=== PATIENT | female | born 1945 | race Caucasian/White ===

== ENCOUNTER → 2019-11-08 | Outpatient (CLI) | payer MEDICARE ==
[2019-11-08 10:41] LABS: CALCIUM 9.8 MG/DL (8.5-10.1); CREATININE SERUM 1.01 MG/DL (0.60-1.30); POTASSIUM 3.9 MMOL/L (3.6-5.0)
== END ==
LOC: LAB FS 09:37
PROVIDERS: ATTEND Family Medicine
DX: I10 Essential (primary) hypertension (principal)
CPT/HCPCS: 36415; 80048

== ENCOUNTER → 2020-07-03 | Outpatient (CLI) | payer MEDICARE, OTHER ==
[2020-07-03 11:49] LABS: ALANINE AMINOTRANSFERASE 9 U/L (0-55); ALBUMIN 4.2 GM/DL (3.2-4.5); ALKALINE PHOSPHATASE 70 U/L (40-136); BILIRUBIN,TOTAL 0.4 MG/DL (0.1-1.0); BUN/CREATININE RATIO 9; CALCIUM 9.4 MG/DL (8.5-10.1); CARBON DIOXIDE 28 MMOL/L (21-32); CHLORIDE 109 MMOL/L (98-107); CREATININE SERUM 0.87 MG/DL (0.60-1.30); GFR ESTIMATED > 60; GLUCOSE 98 MG/DL (70-105); POTASSIUM 4.1 MMOL/L (3.6-5.0); SODIUM 146 MMOL/L (135-145); TOTAL PROTEIN 6.5 GM/DL (6.4-8.2)
[2020-07-03 14:50] LABS: CHOLESTEROL 213 MG/DL (< 200); HDL CHOLESTEROL 52 MG/DL (40-60); TRIGLYCERIDES 83 MG/DL (<150); VLDL CHOLESTEROL 17 MG/DL (5-40)
== END ==
LOC: LAB FS 10:17
PROVIDERS: ATTEND Family Medicine
DX: I10 Essential (primary) hypertension (principal); E03.9 Hypothyroidism, unspecified
CPT/HCPCS: 36415; 80053; 80061; 84443

== ENCOUNTER 2020-09-01 17:24 | Emergency (ER) | payer MEDICARE ==
[~2020-09-01] VITALS: Ht 170 cm; Wt 64.0 kg
--- NOTE | 2020-09-01 17:38 | ED Back Pain ---
General Chief Complaint: Back Problems Stated Complaint: LOW BACK PAIN History of Present Illness Date Seen by Provider: Sep 01, 2020 Time Seen by Provider: 17:34 Initial Comments 75-year-old female presents with lower lumbar back pain. Patient reports that she fell 5 days ago. That the pain has not gotten any better. She denies any numbness or tingling in her legs, no issues with her bowel or bladder. She presents because she would like an x-ray since it is still hurting. She also reports that she had a small contusion on the back of her head. She has no neurologic symptoms. She reports she fell on her feet went out from underneath her and she just fell straight back and landed on her back Allergies and Home Medications Allergies Coded Allergies: diphenhydramine (Verified Allergy, Intermediate, Itching, 09/01/20) calcium (Verified Allergy, Mild, Nausea, 09/01/20) levofloxacin (Verified Allergy, Mild, Itching, 09/01/20) brompheniramine (Verified Allergy, Unknown, 09/01/20) phenylpropanolamine (Verified Allergy, Unknown, 09/01/20) secobarbital (Verified Allergy, Unknown, 09/01/20) Patient Home Medication List Home Medication List Reviewed: Yes Review of Systems Constitutional: No chills, No fever EENTM: see HPI Respiratory: No cough, No short of breath Cardiovascular: No chest pain, No palpitations Gastrointestinal: no symptoms reported Musculoskeletal: back pain Skin: see HPI Psychiatric/Neurological: No Symptoms Reported Past Sxaqbay-Hwqprx-Wofiwm Hx Past Med/Social Hx: Reviewed Nursing Past Med/Soc Hx Physical Exam Vital Signs Vital Signs - First Documented 09/01/20 17:50 Temp 36.4 Pulse 69 Resp 18 B/P (MAP) 113/73 (86) Pulse Ox 98 O2 Delivery Room Air Capillary Refill : Height, Weight, BMI Height: '" Weight: lbs. oz. 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 Patient with likely contusion of her lower back. Recommend she use warm moist heat, Tylenol, ibuprofen and topical lidocaine. She should follow-up with her primary care provider at the end of next week if symptoms or not improving. Diagnostic Imaging Diagonstic Imaging: Xray Plain Films/CT/US/NM/MRI: other Comments [facility], [place] NAME: CLAUDIA TUCKER MED REC#: [id number] PT STATUS: REG ER : 1945 PHYSICIAN: GERALDO ROBLES DO ADMIT DATE: 09/01/20/ER FS Draft Date of Exam:09/01/20 LUMBAR SPINE 2 OR 3 VIEW HISTORY: Fall five days ago with low back pain. TECHNIQUE: 3 views of the lumbar spine. COMPARISON: None. FINDINGS: There is diffuse osteopenia which results in suboptimal evaluation. There are mild multilevel degenerative changes in the lumbar spine. There is trace anterolisthesis at L4-L5. There is extensive calcific atherosclerosis noted. Vertebral body heights are preserved. No acute fracture is seen. IMPRESSION: Osteopenia and degenerative changes with no acute fracture seen in the lumbar spine. Dictated on workstation # [id number] Dict: 09/01/201905 Trans: 09/01/201911 [facility] [id number] Interpreted by: DANNY JOAQUIN MD Electronically signed by: Reviewed: Reviewed by Me, Reviewed/Discussed Departure Impression Primary Impression: Contusion of lower back Qualified Codes: S30.0XXA - Contusion of lower back and pelvis, initial encounter Disposition: HOME, SELF-CARE Condition: Stable Departure-Patient Inst. Referrals: SHAMAR ROTHMAN MD (PCP/Family) Primary Care Physician Patient Instructions: Contusion (DC) Add. Discharge Instructions: Warm moist heat to affected area Tylenol or ibuprofen as needed for pain 4% topical lidocaine with menthol and gel, patch or cream. Use as directed on package All discharge instructions reviewed with patient and/or family. Voiced understanding. GERALDO ROBLES DO Sep 01, 2020 17:38
--- NOTE | 2020-09-01 19:13 | Diagnostic Imaging Report ---
HISTORY: Fall five days ago with low back pain. TECHNIQUE: 3 views of the lumbar spine. COMPARISON: None. FINDINGS: There is diffuse osteopenia which results in suboptimal evaluation. There are mild multilevel degenerative changes in the lumbar spine. There is trace anterolisthesis at L4-L5. There is extensive calcific atherosclerosis noted. Vertebral body heights are preserved. No acute fracture is seen. IMPRESSION: Osteopenia and degenerative changes with no acute fracture seen in the lumbar spine. Dictated by: Dictated on workstation # [id number]
[2020-09-01 19:46] VITALS: BP 113/73
== END 2020-09-01 19:39 | disposition home or self-care (01) ==
LOC: EDUNIT# 17:24 → ER FS 17:26
DX: S30.0XXA Contusion of lower back and pelvis, initial encounter (principal); S00.01XA Abrasion of scalp, initial encounter; Z88.8 Allergy status to other drugs, medicaments and biological substances; Z88.1 Allergy status to other antibiotic agents; W19.XXXA Unspecified fall, initial encounter
CPT/HCPCS: 72100

== ENCOUNTER → 2021-03-14 | Outpatient (CLI) | payer MEDICARE | LOC: LABNPT 14:57 | PROVIDERS: ATTEND Family Medicine | DX: N39.0 Urinary tract infection, site not specified (principal) | CPT/HCPCS: 87088 ==

== ENCOUNTER 2021-06-19 08:51 | Emergency (ER) | payer MEDICARE, OTHER ==
[~2021-06-19] VITALS: Ht 171 cm; Wt 64.0 kg
--- OUTSIDE RECORDS SUMMARY | 2021-06-19 08:56 | XMS REPORT | Clinical Summary ---
Author Author [facility] Organization [facility] Address Unknown Phone Unavailable Care Team Providers Care Cash Accounting Clerk Name Role Phone Elisa Chan RN PCP Unavailable Allergies Comments Active Allergy Reactions Severity Noted Date Levofloxacin 04/18/2017 Medications End Date Status Medication Sig Dispensed Refills Start Date Active levothyroxine (SYNTHROID, Take 88 mcg 0 LEVOTHROID) 88 MCG tablet by mouth daily. Active Problems Not on file Social History Date Tobacco Use Types Packs/Day Years Used Never Smoker Smokeless Tobacco: Never Used Comments Alcohol Use Standard Drinks/Week No 0 (1 standard drink = 0.6 o z pure alcohol) Sex Assigned at Date Recorded Not on file Last Filed Vital Signs Reading Time Taken Comments Vital Sign 159/59 04/18/2017 4:46 PM CDT Blood Pressure 63 04/18/2017 4:46 PM CDT Pulse 36.9 C (98.5 F) 04/18/2017 3:34 PM CDT Temperature 16 04/18/2017 3:34 PM CDT Respiratory Rate 97% 04/18/2017 4:46 PM CDT Oxygen Saturation - - Inhaled Oxygen Concentration 66.4 kg (146 lb 4.8 oz) 04/18/2017 3:34 PM CDT Weight 170.2 cm (5' 7") 04/18/2017 3:34 PM CDT Height 22.91 04/18/2017 3:34 PM CDT Body Mass Index Plan of Treatment Health Maintenance Due Date Last Done Comments Medicare Annual Wellness 1945 Td/Tdap# 1945 COVID-19 Vaccine (1) 1955 Zoster Vaccine# (1 of 2) 1993 Advance Care Plan 2008 Conversation Needed # Depression Screening 2008 PHQ-9 # Osteoporosis Screening 2008 Pneumococcal Vaccine: 65+ 2008 Years (1 of 1 - PPSV23) Fall Risk Assessment # 04/18/2018 04/18/2017 Influenza Vaccine (#1) 2021 Results Not on filefrom Last 3 Months Insurance Type Payer Benefit Subscriber ID Effective Phone Address Plan / Dates Group Medicare MEDICARE MEDICARE [id number] 2008- [phone] WPS GHA PART A B Present ATTN CLAIMS DEPT [address] [place] [address] [place] [id number] [address] MEDICAID -Present [id number] [place] [address] 78 1 Goivani Ramonda L Personal/F Self [address] [place] (Home) [place] [id number] FeeGiovani paulada L Personal/F Self [address] [place] (Home) [place] [id number] Advance Directives For more information, please contact: [phone] Patient Development Mgr Explanation Type Date Recorded Advance Directives and Living Will 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
[2021-06-19] MEDS ORDERED: NS IV 1000 ML 1,000 ML IV STA (09:14)
[2021-06-19] MEDS ORDERED: ORPHENADRINE 60 MG/2 ML (NORFLEX) AMP (ED ONLY) IVP STA (09:14)
[2021-06-19] MEDS ORDERED: fentaNYL INJ 100 MCG/2 ML AMP IVP STA (09:14)
[2021-06-19] MEDS ORDERED: KETOROLAC 30 MG/ML VIAL IVP STA (09:14)
--- NOTE | 2021-06-19 09:30 | ED Trauma-Multisystem ---
General Chief Complaint: Back Problems Stated Complaint: WC BACK INJ Source of Information: Patient, Family (daughter) Exam Limitations: Other (limited responses due to pain, pt holding breath) History of Present Illness Date Seen by Provider: Jun 19, 2021 Time Seen by Provider: 09:00 Initial Comments 76-year-old female presenting with complaints of increased back and rib pain since having a work comp injury yesterday. 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 She was having pain to her right lower ribs that started overnight. She thinks that the movements had hit her ribs. She also has increased pain across her low back and her lower thoracic spine. She was seen yesterday in urgent care and states they did not do any x-rays or imaging they only gave her Toradol shot and "doped her up". She was to go back today and get xrays but was in so much pain they told her she would have to see Dr. Nielsen for work comp case. Due to her increased pain she felt that she could not wait to be seen by him. She came to the ED to be evaluated. She denies any pain or burning with urination. She has had no loss of bowel or bladder control. The daughter reports that she was called to her mom's house to help get her up off of the toilet because she could not get off herself due to the pain in her back. The daughter reports that the urine was really dark and smelled strong. Patient took 2 ibuprofen about an hour prior to arrival. She states that has not helped with her pain. She denies having any pain going into her legs or radiating into her arms. Occurred: Yesterday Severity: Severe Pain/Injury Location: Back, Chest (right lower ribs) Method of Injury: Other (reports a heavy set woman fell back on top of her) Modifying Factors: No Movement; Pain Medication (medicine from Urgent Care helped yesterday but wore off overnight) Loss of Consciousness: No Loss of Consciousness Associated Symptoms (Fall): No Abdominal Pain; Chest Pain (right lower anterior rib pain); No Confusion, No Dizziness, No Headache; Muscle Spasms; No Nausea/Vomiting, No Neck Pain, No Ringing in Ears, No Seizures; Shortness of Air (due to rib pain making it hard to breath); No Slurred Speech; Trouble Walking (due to pain in back and ribs); No Vision Changes Allergies and Home Medications Allergies Coded Allergies: diphenhydramine (Verified Allergy, Intermediate, Itching, 09/01/20) calcium (Verified Allergy, Mild, Nausea, 09/01/20) levofloxacin (Verified Allergy, Mild, Itching, 09/01/20) brompheniramine (Verified Allergy, Unknown, 09/01/20) phenylpropanolamine (Verified Allergy, Unknown, 09/01/20) secobarbital (Verified Allergy, Unknown, 09/01/20) Patient Home Medication List Home Medication List Reviewed: Yes Hydrocodone/Acetaminophen (Hydrocodone-Acetamin 5-325 mg) 1 Each Tablet, 1 TAB PO Q4H PRN for PAIN-SEVERE (8-10) Prescribed by: ANIRUDH LEDBETTER on 06/19/21 1152 Ibuprofen (Ibuprofen) 600 Mg Tablet, 600 MG PO Q6H PRN for PAIN-MILD Prescribed by: ANIRUDH LEDBETTER on 06/19/21 1151 Lidocaine (Lidocaine 5% Patch) 1 Each Adh..patch, 1 EACH TP Q12H PRN for Vertebral Fracture Prescribed by: ANIRUDH LEDBETTER on 06/19/21 1151 Methocarbamol (Methocarbamol) 500 Mg Tablet, 1,000 MG PO Q8H PRN for back pain/spasms Prescribed by: ANIRUDH LEDBETTER on 06/19/21 1151 Review of Systems Review of Systems Constitutional: No chills, No fever Eyes: No Symptoms Reported Ears: No Symptoms Reported Nose: No Symptoms Reported Mouth: No Symptoms Reported Throat: No Symptoms to Report Respiratory: see HPI Cardiovascular: See HPI Gastrointestinal: no symptoms reported Genitourinary: no symptoms reported Musculoskeletal: see HPI Skin: No change in color (no bruises noted to skin on ribs, chest or back) Psychiatric/Neurological: Anxiety; Denies Numbness, Denies Tingling, Denies Unable to Move Lower Ext, Denies Unable to Move Upper Ext Past [id number]-Asuimz Hx Seasonal Allergies Seasonal Allergies: No Past Medical History Surgeries: Yes Hysterectomy Respiratory: No Cardiac: Yes Hypertension Neurological: No Genitourinary: No Gastrointestinal: No Musculoskeletal: No Endocrine: No Hypothyroidsim HEENT: No Cancer: No Psychosocial: No Integumentary: No Blood Disorders: No Physical Exam Vital Signs Vital Signs - First Documented 06/19/21 09:03 Temp 36.2 Pulse 73 Resp 20 B/P (MAP) 179/64 (102) Pulse Ox 98 O2 Delivery Room Air Height, Weight, BMI Height: '" Weight: lbs. oz. kg; 22.00 BMI Method: General Appearance: Severe Distress Head: No Evidence of Injury Ears, Nose, Throat: Hearing Grossly Normal, No Evidence of ENT Injury Neck: Full Range of Motion, Normal Inspection, Non Tender, Supple Cardiovascular: Regular Rate, Rhythm, Normal Peripheral Pulses Respiratory: Lungs Clear, Normal Breath Sounds, Other (tender to palpation right lower anterior ribs without crepitus or step offs) Gastrointestinal: Normal Bowel Sounds, No Pulsatile Mass, Non Tender, Soft Rectal: Deferred Back: No CVA Tenderness, Muscle Spasm (paraspinal muscles lumbar and thoracic), Vertebral Tenderness (lower thoracic spine and lower lumbar spine without stepoffs, crepitus, bruising), Other (unable to perform straight leg raise due to pain) Extremity: Normal Capillary Refill, No Calf Tenderness, No Pedal Edema Neurologic/Psychiatric: Alert, Oriented x3, group chief operator II-XII Norm as Tested Skin: Normal Color, Warm/Dry Jana Coma Score Best Eye Response (Jana): (4) Open Spontaneously Best Verbal Response (Drummond): (5) Oriented Best Motor Response (Drummond): (6) Obeys Commands Drummond Total: 15 Progress/Results/Core Measures Results/Orders Lab Results Laboratory Tests Test 06/19/21 09:20 06/19/21 10:55 Range/Units White Blood Count 5.8 4.3-11.0 10^3/uL Red Blood Count 4.11 3.80-5.11 10^6/uL Hemoglobin 12.4 11.5-16.0 g/dL Hematocrit 37 35-52 % Mean Corpuscular Volume 91 80-99 fL Mean Corpuscular Hemoglobin 30 25-34 pg Mean Corpuscular Hemoglobin Concent 33 32-36 g/dL Red Cell Distribution Width 12.7 10.0-14.5 % Platelet Count 69 L 130-400 10^3/uL Mean Platelet Volume 10.9 9.0-12.2 fL Neutrophils (%) (Auto) 64 42-75 % Lymphocytes (%) (Auto) 24 12-44 % Monocytes (%) (Auto) 9 0-12 % Eosinophils (%) (Auto) 2 0-10 % Basophils (%) (Auto) 1 0-10 % Neutrophils # (Auto) 3.7 1.8-7.8 X 10^3 Lymphocytes # (Auto) 1.4 1.0-4.0 X 10^3 Monocytes # (Auto) 0.5 0.0-1.0 X 10^3 Eosinophils # (Auto) 0.1 0.0-0.3 10^3/uL Basophils # (Auto) 0.1 0.0-0.1 10^3/uL Percent Immature Platelet Fraction 5.8 0.0-7.6 % Sodium Level 140 135-145 MMOL/L Potassium Level 3.5 L 3.6-5.0 MMOL/L Chloride Level 105 98-107 MMOL/L Carbon Dioxide Level 23 21-32 MMOL/L Anion Gap 12 5-14 MMOL/L Blood Urea Nitrogen 11 7-18 MG/DL Creatinine 0.77 0.60-1.30 MG/DL Estimat Glomerular Filtration Rate 73 BUN/Creatinine Ratio 14 Glucose Level 129 H 70-105 MG/DL Calcium Level 9.1 8.5-10.1 MG/DL Corrected Calcium 9.3 8.5-10.1 MG/DL Total Bilirubin 0.5 0.1-1.0 MG/DL Aspartate Amino Transf (AST/SGOT) 13 5-34 U/L Alanine Aminotransferase (ALT/SGPT) 10 0-55 U/L Alkaline Phosphatase 89 40-136 U/L Total Protein 6.7 6.4-8.2 GM/DL Albumin 3.8 3.2-4.5 GM/DL Urine Color YELLOW Urine Clarity CLEAR Urine pH 7.0 5-9 Urine Specific [place] <=1.005 1.016-1.022 Urine Protein NEGATIVE NEGATIVE Urine Glucose (UA) NEGATIVE NEGATIVE Urine Ketones NEGATIVE NEGATIVE Urine Nitrite NEGATIVE NEGATIVE Urine Bilirubin NEGATIVE NEGATIVE Urine Urobilinogen 0.2 < = 1.0 MG/DL Urine Leukocyte Esterase TRACE H NEGATIVE Urine RBC (Auto) 1+ H NEGATIVE Urine RBC 2-5 H /HPF Urine WBC 2-5 /HPF Urine Squamous Epithelial Cells 0-2 /HPF Urine Crystals NONE /LPF Urine Bacteria NEGATIVE /HPF Urine Casts NONE /LPF Urine Mucus NEGATIVE /LPF Urine Culture Indicated NO My Orders Orders - ANIRUDH LEDBETTER MD Comprehensive Metabolic Panel (06/19/21 09:14) Ua Culture If Indicated (06/19/21 09:14) Ed Iv/Invasive Line Start (06/19/21 09:14) Cbc With Automated Diff (06/19/21 09:14) Ns Iv 1000 Ml (Sodium Chloride 0.9%) (06/19/21 09:14) Orphenadrine Inj (Ed Only) (Norflex Inje (06/19/21 09:14) Ketorolac Injection (Toradol Injection) (06/19/21 09:14) Fentanyl Inj (Sublimaze Injection) (06/19/21 09:14) Ct Chest/Abdomen/Pelvis W (06/19/21 09:45) Iohexol Injection (Omnipaque 350 Mg/Ml 1 (06/19/21 10:00) Received Contrast (Hold Metformin- Contr (06/19/21 10:00) Sodium Chloride Flush (Catheter Flush Sy (06/19/21 10:00) Ns (Ivpb) (Sodium Chloride 0.9% Ivpb Bag (06/19/21 10:00) Hydrocodone/Apap 5/325 Tablet (Lortab 5 (06/19/21 11:36) Medications Given in ED Current Medications Medications Dose Ordered Sig/Denzel Route Start Time Stop Time Status Last Admin Dose Admin Iohexol 100 ml ONCE ONCE IV 06/19/21 10:00 06/19/21 10:01 DC 06/19/21 10:22 100 ML Sodium Chloride 10 ml NEEDED PRN IV 06/19/21 10:00 06/19/21 12:53 DC 06/19/21 10:22 10 ML Sodium Chloride 100 ml ONCE ONCE IV 06/19/21 10:00 06/19/21 10:01 DC 06/19/21 10:22 100 ML Vital Signs/I&O 06/19/21 06/19/21 06/19/21 09:03 09:40 11:44 Temp 36.2 36.2 36.2 Pulse 73 75 Resp 20 20 B/P (MAP) 179/64 (102) 149/48 Pulse Ox 98 97 O2 Delivery Room Air Room Air Progress Progress Note #1: Progress Note Will patient having pain to the point that she is holding her breath and having trouble trying to respond to questions and interact for an exam, will give IV Toradol for pain, IV Norflex for muscle spasms, IV fentanyl for severe pain. Obtain a CT scan of the chest abdomen and pelvis with IV contrast to help evaluate for any evidence of internal bleeding or injuries since the pain is significantly worsened since yesterday. Also have reconstruction imaging of the thoracic and lumbar spine to evaluate for compression fractures. The CT scan of the chest would also look for rib fractures. Give IV fluids for hydration to help with report of strong smelling, dark urine this am. Obtain basic labs as well to evaluate for anemia to indicate internal bleeding, chemistry to evaluate electrolytes and renal and hepatic function. Differential diagnosis includes rib contusion, rib fracture, compression fracture of the spine, myofascial strain of the thoracic spine, myofascial strain of the lumbar spine Progress Note #2: Time: 10:31 Progress Note CBC and chemistry without acute significant abnormality. Awaiting results of imaging. Patient had urinated prior to coming to the ED and had not been able to obtain a urine specimen yet. IV fluids infusing to try and help with hydration as well as flushing out her kidneys after receiving contrast for the CT scan. Progress Note #3: Progress Note Urine did not show any definite signs of infection. She had no definite rib fracture seen on the CT scan. There was no internal bleeding seen on the CT scans. She had a superior endplate compression fracture of L3. There is no retropulsion. She is neurovascularly intact. When reviewing results with the patient and her daughter she reports that her pain is a 3 out of 10 when she is laying on her right side. Will administer a hydrocodone to help with her pain and have it last longer than the IV medications. Counseled about management of the back pain from her fracture with continued NSAIDs as well as possible lidocaine numbing patches. Using a muscle relaxer to help with pain and muscle spasms. Alternate ice and heat to her back. Make sure that she is getting up and moving around to help limit her muscles from tightening and getting more painful. Getting in with the clinic and see Dr. Nielsen for Work Comp to see about managing her back pain from superior endplate fracture of L3. Off work until at least Jun 26 or until cleared by Dr. Nielsen. Will need to see him to be cleared to return. May need physical therapy, pain management, spine consult for her back. 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 Counseled on return precautions of worsening pain uncontrolled by symptomatic care and medications. Loss of bowel or bladder control. Patient was able to ambulate out of the ED with the assistance of her daughter. She was still having some pain but was much more comfortable than when she arrived in the ED Diagnostic Imaging Diagonstic Imaging: CT Plain Films/CT/US/NM/MRI: chest, abdomen, pelvis Comments NAME: [facility] REC#: [id number] PT STATUS: REG ER : 1945 PHYSICIAN: ANIRUDH LEDBETTER MD ADMIT DATE: 06/19/21/ER FS Draft Date of Exam:06/19/21 CT CHEST/ABDOMEN/PELVIS W PROCEDURE: CT chest, abdomen, and pelvis with contrast. TECHNIQUE: Multiple contiguous axial images were obtained through the chest, abdomen, and pelvis after the administration of intravenous contrast. Auto Exposure Controls were utilized during the CT exam to meet ALARA standards for radiation dose reduction. INDICATION: Fall yesterday with right lower anterior rib pain as well as thoracic and lumbar spine pain. No prior studies are available for comparison. CT CHEST: No definite mediastinal hematoma or great vessel injury is identified. Thoracic aorta is unremarkable. There is no pericardial or pleural fluid identified. No pulmonary contusion or pneumothorax is identified. There are some pleural calcifications in the lung apices bilaterally. Ribs appear to be intact. Thoracic spine shows normal kyphotic curvature. No acute bony abnormality is detected. IMPRESSION: Unremarkable CT of the chest. CT abdomen and pelvis: No focal liver or splenic laceration is identified. Pancreas, adrenal glands and kidneys are without focal injury. There are low-attenuation lesions within the left kidney consistent with cysts. Largest cyst lower pole left kidney measuring 3.7 cm in size. Aorta is heavily calcified but nonaneurysmal. No free fluid or hemoperitoneum is identified. There is diverticulosis of the sigmoid colon but no evidence of acute diverticulitis. Bladder is unremarkable. There appears to be an acute fracture involving the superior endplate of the L3 vertebral body. No significant loss of stature is seen. Central canal is patent without evidence of retropulsion. No definite paraspinous hematoma is identified. No other fracture is seen. IMPRESSION: 1. No evidence of abdominal or pelvic visceral injury. 2. Uncomplicated diverticulosis. 3. Acute superior endplate fracture L3 vertebral body without evidence of retropulsion. Dictated on workstation # [id number] Dict: 06/19/21 1038 Trans: 06/19/21 1048 [id number] Interpreted by: CHENG ORTEGA MD Electronically signed by: Departure Impression Primary Impression: Traumatic closed nondisplaced fracture of lumbar vertebra Qualified Codes: S32.009A - Unspecified fracture of unspecified lumbar vertebra, initial encounter for closed fracture Additional Impressions: Contusion of rib on right side Qualified Codes: S20.211A - Contusion of right front wall of thorax, initial encounter Acute lumbosacral myofascial strain Qualified Codes: S39.012A - Strain of muscle, fascia and tendon of lower back, initial encounter Acute thoracic myofascial strain Qualified Codes: S29.019A - Strain of muscle and tendon of unspecified wall of thorax, initial encounter Contusion of bilateral back wall of thorax, initial encounter Contusion of lower back and pelvis, initial encounter Defect of endplate of vertebra Disposition: 01 HOME, SELF-CARE Condition: Stable Departure-Patient Inst. Decision time for Depature: 11:52 Referrals: SHAMAR ROTHMAN MD (PCP/Family) Primary Care Physician DENNIS NIELSEN MD Patient Instructions: Rib Fracture or Bruised Rib ED, Vertebral Compression Fracture ED, Muscle Strain ED, Using Cold for Pain Add. Discharge Instructions: Continue with ibuprofen to help with pain and inflammation. Use muscle relaxer to help with muscle spasms and pain in the back For severe pain use the narcotic pain medication. While taking the narcotic pain medicine make sure that you are taking MiraLAX at least once to twice a day to help keep your bowel movements soft and regular. You may use a stool softener and Dulcolax along with this but you will need laxatives to help your bowels move while taking the narcotics. Follow-up through Dr. Nielsen for the work comp case. You may need Physical Therapy for your back to help with pain and healing, referral to pain management or marketing technology specialist, or other management per Dr. Nielsen and Work Comp clinic. All discharge instructions reviewed with patient and/or family. Voiced understanding. Scripts Lidocaine (Lidocaine 5% Patch) 1 Each Adh..patch 1 EACH TP Q12H PRN for Vertebral Fracture MDD 2 for 10 Days, #10 PATCH 0 Refills 2 patches max for 12 hours, then 12 hours patch-free period. Prov: ANIRUDH LEDBETTER MD 06/19/21 Hydrocodone/Acetaminophen (Hydrocodone-Acetamin 5-325 mg) 1 Each Tablet 1 TAB PO Q4H PRN for PAIN-SEVERE (8-10) for 5 Days, #30 TAB 0 Refills Prov: ANIRUDH LEDBETTER MD 06/19/21 Methocarbamol (Methocarbamol) 500 Mg Tablet 1000 MG PO Q8H PRN for back pain/spasms for 10 Days, #60 TAB 0 Refills Prov: ANIRUDH LEDBETTER MD 06/19/21 Ibuprofen (Ibuprofen) 600 Mg Tablet 600 MG PO Q6H PRN for PAIN-MILD for 10 Days, #40 TAB 0 Refills Prov: ANIRUDH LEDBETTER MD 06/19/21 Work/School Note: Work Release Form Date Seen in the Emergency Department: Jun 19, 2021 Return to Work: Jun 26, 2021 Restrictions: Need Release from Doctor ANIRUDH LEDBETTER MD Jun 19, 2021 09:30
[2021-06-19 09:45] LABS: HEMATOCRIT 37 % (35-52); HEMOGLOBIN 12.4 g/dL (11.5-16.0); MEAN CORPUSCULAR HEMOGLOBIN 30 pg (25-34); MEAN CORPUSCULAR HGB CONC 33 g/dL (32-36); MEAN CORPUSCULAR VOLUME 91 fL (80-99); PLATELET COUNT 69 10^3/uL (130-400); WHITE BLOOD COUNT 5.8 10^3/uL (4.3-11.0)
[2021-06-19 09:46] LABS: BASOPHILS # (AUTO) 0.1 10^3/uL (0.0-0.1); BASOPHILS % (AUTO) 1 % (0-10); EOSINOPHILS # (AUTO) 0.1 10^3/uL (0.0-0.3); EOSINOPHILS % (AUTO) 2 % (0-10); LYMPHOCYTES # (AUTO) 1.4 X 10^3 (1.0-4.0); LYMPHOCYTES % (AUTO) 24 % (12-44); MEAN PLATELET VOLUME 10.9 fL (9.0-12.2); MONOCYTES # (AUTO) 0.5 X 10^3 (0.0-1.0); MONOCYTES % (AUTO) 9 % (0-12); NEUTROPHILS # (AUTO) 3.7 X 10^3 (1.8-7.8); NEUTROPHILS % (AUTO) 64 % (42-75)
[2021-06-19 09:55] LABS: CREATININE SERUM 0.77 MG/DL (0.60-1.30); POTASSIUM 3.5 MMOL/L (3.6-5.0)
[2021-06-19 09:56] LABS: ALBUMIN 3.8 GM/DL (3.2-4.5); BILIRUBIN,TOTAL 0.5 MG/DL (0.1-1.0); CALCIUM 9.1 MG/DL (8.5-10.1); TOTAL PROTEIN 6.7 GM/DL (6.4-8.2)
[2021-06-19] MEDS ORDERED: IOHEXOL 350 MG/ML 100 ML (OMNIPAQUE 350) VIAL IV ONE (10:00)
[2021-06-19] MEDS ORDERED: HOLD METFORMIN - RECEIVED CONTRAST 20 ML VIAL IV SCH (10:00)
[2021-06-19] MEDS ORDERED: NS 100 ML (IVPB) BAG IV ONE (10:00)
[2021-06-19] MEDS ORDERED: CATHETER FLUSH 10 ML SYR IV PRN (10:00)
--- NOTE | 2021-06-19 10:48 | Diagnostic Imaging Report ---
PROCEDURE: CT chest, abdomen, and pelvis with contrast. TECHNIQUE: Multiple contiguous axial images were obtained through the chest, abdomen, and pelvis after the administration of intravenous contrast. Auto Exposure Controls were utilized during the CT exam to meet ALARA standards for radiation dose reduction. INDICATION: Fall yesterday with right lower anterior rib pain as well as thoracic and lumbar spine pain. No prior studies are available for comparison. CT CHEST: No definite mediastinal hematoma or great vessel injury is identified. Thoracic aorta is unremarkable. There is no pericardial or pleural fluid identified. No pulmonary contusion or pneumothorax is identified. There are some pleural calcifications in the lung apices bilaterally. Ribs appear to be intact. Thoracic spine shows normal kyphotic curvature. No acute bony abnormality is detected. IMPRESSION: Unremarkable CT of the chest. CT abdomen and pelvis: No focal liver or splenic laceration is identified. Pancreas, adrenal glands and kidneys are without focal injury. There are low-attenuation lesions within the left kidney consistent with cysts. Largest cyst lower pole left kidney measuring 3.7 cm in size. Aorta is heavily calcified but nonaneurysmal. No free fluid or hemoperitoneum is identified. There is diverticulosis of the sigmoid colon but no evidence of acute diverticulitis. Bladder is unremarkable. There appears to be an acute fracture involving the superior endplate of the L3 vertebral body. No significant loss of stature is seen. Central canal is patent without evidence of retropulsion. No definite paraspinous hematoma is identified. No other fracture is seen. IMPRESSION: 1. No evidence of abdominal or pelvic visceral injury. 2. Uncomplicated diverticulosis. 3. Acute superior endplate fracture L3 vertebral body without evidence of retropulsion. Dictated by: Dictated on workstation # [id number]
[2021-06-19 11:07] LABS: BILIRUBIN,URINE NEGATIVE (NEGATIVE); CLARITY,URINE CLEAR; COLOR,URINE YELLOW; GLUCOSE, URINE (UA) NEGATIVE (NEGATIVE); KETONES,URINE NEGATIVE (NEGATIVE); LEUKOCYTE ESTERASE ,URINE TRACE (NEGATIVE); NITRITE,URINE NEGATIVE (NEGATIVE); PROTEIN,URINE NEGATIVE (NEGATIVE)
[2021-06-19 11:16] LABS: BACTERIA,URINE NEGATIVE /HPF; SQUAMOUS EPITHELIAL CELL,UR 0-2 /HPF
[2021-06-19] MEDS ORDERED: HYDROcodone/APAP 5 MG/325 MG (LORTAB) TAB PO STA (11:36)
[2021-06-19 11:44] VITALS: BP 149/48
[2021-06-19] MEDS ORDERED: METH-731 PO (11:51)
[2021-06-19] MEDS ORDERED: IBUP-1773 PO (11:51)
[2021-06-19] MEDS ORDERED: LIDO700A45 TP (11:51)
[2021-06-19] MEDS ORDERED: ACHD5005 PO (11:51)
== END 2021-06-19 12:17 | disposition home or self-care (01) ==
LOC: EDUNIT# 08:51 → ER FS 08:53
DX: S32.030A Wedge compression fracture of third lumbar vertebra, initial encounter for closed fracture (principal); S29.012A Strain of muscle and tendon of back wall of thorax, initial encounter; S29.011A Strain of muscle and tendon of front wall of thorax, initial encounter; I10 Essential (primary) hypertension; W51.XXXA Accidental striking against or bumped into by another person, initial encounter; Y92.59 Other trade areas as the place of occurrence of the external cause; Y99.0 Civilian activity done for income or pay
CPT/HCPCS: 36415; 71260; 74177; 80053; 81000; 85025

== ENCOUNTER 2022-09-22 11:02 | Emergency (ER) | payer MEDICARE, OTHER ==
[~2022-09-22] VITALS: Ht 170 cm; Wt 61.0 kg
[~2022-09-22 11:02] MED LIST: ACHD5005 PO; IBUP-1773 PO; LIDO700A45 TP; METH-731 PO
--- NOTE | 2022-09-22 11:06 | ED Back Pain ---
General Chief Complaint: Back Problems Stated Complaint: FALL W/ POSSIBLE LOC; BACK PAIN History of Present Illness Date Seen by Provider: Sep 22, 2022 Time Seen by Provider: 11:05 Initial Comments 77-year-old female presents following a fall. 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 That she then just had an unknown follow-up. She has not sure what caused the fall she feeling maybe she lost consciousness prior to the fall. She denies any chest pain, shortness of juwan th. She does report she had a recent cough. She is complaining of pain in her left posterior back around her shoulder blade on the ribs. She denies hitting her head. She reported a little bit of nausea just after the fall but no vomiting or symptoms since then. Allergies and Home Medications Allergies Coded Allergies: diphenhydramine (Verified Allergy, Intermediate, Itching, 09/01/20) calcium (Verified Allergy, Mild, Nausea, 09/01/20) levofloxacin (Verified Allergy, Mild, Itching, 09/01/20) brompheniramine (Verified Allergy, Unknown, 09/01/20) phenylpropanolamine (Verified Allergy, Unknown, 09/01/20) secobarbital (Verified Allergy, Unknown, 09/01/20) Patient Home Medication List Home Medication List Reviewed: Yes Hydrocodone/Acetaminophen (Hydrocodone-Acetamin 5-325 mg) 1 Each Tablet, 1 TAB PO Q4H PRN for PAIN-SEVERE (8-10) Prescribed by: ANIRUDH LEDBETTER on 06/19/21 1152 Ibuprofen (Ibuprofen) 600 Mg Tablet, 600 MG PO Q6H PRN for PAIN-MILD Prescribed by: ANIRUDH LEDBETTER on 06/19/21 1151 Lidocaine (Lidocaine 5% Patch) 1 Each Adh..patch, 1 EACH TP Q12H PRN for Vert ebral Fracture Prescribed by: ANIRUDH LEDBETTER on 06/19/21 1151 Methocarbamol (Methocarbamol) 500 Mg Tablet, 1,000 MG PO Q8H PRN for back pain/spasms Prescribed by: ANIRUDH LEDBETTER on 06/19/21 1151 Review of Systems Constitutional: No chills, No fever, No weakness EENTM: no symptoms reported Respiratory: see HPI, cough; No short of breath Cardiovascular: No chest pain, No palpitations Gastrointestinal: No abdominal pain, No diarrhea, No vomiting Genitourinary: no symptoms reported Musculoskeletal: see HPI, back pain Skin: no symptoms reported Psychiatric/Neurological: No Symptoms Reported Past Mkcaamp-Tcnvoe-Hrlnzf Hx Immunizations Up To Date First/Initial COVID19 Vaccinat: Not currently vaccinated Seasonal Allergies Seasonal Allergies: No Past Medical History Surgery/Hospitalization HX: HTN; Hypothyroidism Surgeries: Yes Hysterectomy Respiratory: No Cardiac: Yes Hypertension Neurological: No Genitourinary: No Gastrointestinal: No Musculoskeletal: No Endocrine: No Hypothyroidsim HEENT: No Cancer: No Psychosocial: No Integumentary: No Blood Disorders: No Physical Exam Vital Signs Vital Signs - First Documented 09/22/22 11:12 Temp 36.5 Pulse 69 Resp 18 B/P (MAP) 133/59 (83) Pulse Ox 95 O2 Delivery Nasal Cannula Capillary Refill : Height, Weight, BMI Height: '" Weight: lbs. oz. kg; 21.00 BMI Method: General Appearance: No Apparent Distress, WD/WN HEENT: Normal ENT Inspection Neck: Non Tender, Supple Cardiovascular: Regular Rate, Rhythm Respiratory: Lungs Clear, Normal Breath Sounds Gastrointestinal: Non Tender, Soft Back: Other (Tenderness to palpation left thoracic paraspinal/parascapular) Extremity: Normal Capillary Refill, Normal Range of Motion, Non Tender Neurologic/Psychiatric: Alert, Oriented x3, Normal Mood/Affect, reception manager II-XII Norm as Tested Skin: Normal Color, Warm/Dry Progress/Results/Core Measures Results/Orders Lab Results Laboratory Tests Test 09/22/22 11:10 09/22/22 11:16 Range/Units White Blood Count 5.7 4.3-11.0 10^3/uL Red Blood Count 4.18 3.80-5.11 10^6/uL Hemoglobin 12.7 11.5-16.0 g/dL Hematocrit 37 35-52 % Mean Corpuscular Volume 90 80-99 fL Mean Corpuscular Hemoglobin 30 25-34 pg Mean Corpuscular Hemoglobin Concent 34 32-36 g/dL Red Cell Distribution Width 12.1 10.0-14.5 % Platelet Count 143 130-400 10^3/uL Mean Platelet Volume 11.5 9.0-12.2 fL Immature Granulocyte % (Auto) 0 % Neutrophils (%) (Auto) 59 42-75 % Lymphocytes (%) (Auto) 32 12-44 % Monocytes (%) (Auto) 8 0-12 % Eosinophils (%) (Auto) 0 0-10 % Basophils (%) (Auto) 0 0-10 % Neutrophils # (Auto) 3.4 1.8-7.8 10^3/uL Lymphocytes # (Auto) 1.8 1.0-4.0 10^3/uL Monocytes # (Auto) 0.5 0.0-1.0 10^3/uL Eosinophils # (Auto) 0.0 0.0-0.3 10^3/uL Basophils # (Auto) 0.0 0.0-0.1 10^3/uL Immature Granulocyte # (Auto) 0.0 0.0-0.1 10^3/uL Sodium Level 142 135-145 MMOL/L Potassium Level 3.3 L 3.6-5.0 MMOL/L Chloride Level 102 98-107 MMOL/L Carbon Dioxide Level 27 21-32 MMOL/L Anion Gap 13 5-14 MMOL/L Blood Urea Nitrogen 11 7-18 MG/DL Creatinine 0.74 0.60-1.30 MG/DL Estimat Glomerular Filtration Rate 82 BUN/Creatinine Ratio 15 Glucose Level 122 H 70-105 MG/DL Calcium Level 9.0 8.5-10.1 MG/DL Corrected Calcium 9.2 8.5-10.1 MG/DL Total Bilirubin 0.5 0.1-1.0 MG/DL Aspartate Amino Transf (AST/SGOT) 22 5-34 U/L Alanine Aminotransferase (ALT/SGPT) 12 0-55 U/L Alkaline Phosphatase 76 40-136 U/L Troponin I < 0.30 <0.30 NG/ML Total Protein 6.7 6.4-8.2 GM/DL Albumin 3.7 3.2-4.5 GM/DL Urine Color YELLOW Urine Clarity CLEAR Urine pH 7.0 5-9 Urine Specific [place] 1.020 1.016-1.022 Urine Protein NEGATIVE NEGATIVE Urine Glucose (UA) NEGATIVE NEGATIVE Urine Ketones TRACE H NEGATIVE Urine Nitrite NEGATIVE NEGATIVE Urine Bilirubin NEGATIVE NEGATIVE Urine Urobilinogen 2.0 < = 1.0 MG/DL Urine Leukocyte Esterase NEGATIVE NEGATIVE Urine RBC (Auto) TRACE-I H NEGATIVE Urine RBC 2-5 H /HPF Urine WBC 0-2 /HPF Urine Squamous Epithelial Cells 0-2 /HPF Urine Crystals NONE /LPF Urine Bacteria NEGATIVE /HPF Urine Casts NONE /LPF Urine Mucus NEGATIVE /LPF Urine Culture Indicated NO My Orders Orders - ROBLES,GERALDO L DO Cbc With Automated Diff (09/22/22 11:09) Comprehensive Metabolic Panel (09/22/22 11:09) Troponin I Fs (09/22/22 11:09) Ed Iv/Invasive Line Start (09/22/22 11:09) Ekg Tracing (09/22/22 11:09) Ribs/Unilateral With Chest (09/22/22 11:09) Ct Head Wo (09/22/22 11:14) Ua Culture If Indicated (09/22/22 11:15) Vital Signs/I&O 09/22/22 11:12 Temp 36.5 Pulse 69 Resp 18 B/P (MAP) 133/59 (83) Pulse Ox 95 O2 Delivery Nasal Cannula Progress Progress Note : Progress Note Patient's labs were ordered, reviewed and interpreted by me. There are no significant acute findings on her labs. Patient's radiology studies were initially reviewed by me with final interpretation and per radiology report. Patient CT shows questionable acute maxillary sinus. Patient's symptoms likely due to a rib contusion. Unknown etiology due to her fall however her evaluation and labs were work-up were negative. Patient does have increased risk of morbidity and mortality based on her social determinants of health. However at this time did not appear to be a reason to hospitalize her issues doing fine with a negative evaluation. I did discuss with her supportive care. She is stable and discharged Initial ECG Impression Date: Sep 22, 2022 Initial ECG Impression Time: 11:36 Initial ECG Rhythm: Normal Sinus Initial ECG Intervals: HI Comment Patient normal sinus rhythm, heart rate 61, HI 158, no acute ST elevation or acute changes. Diagnostic Imaging Diagonstic Imaging: CT Plain Films/CT/US/NM/MRI: head Comments Date of Exam:09/22/22 CT HEAD WO PROCEDURE: CT head without contrast. TECHNIQUE: Multiple contiguous axial images were obtained through the brain without the use of intravenous contrast. Auto Exposure Controls were utilized during the CT exam to meet ALARA standards for radiation dose reduction. INDICATION: Trauma. Syncope. Fall. COMPARISON: None. FINDINGS: No intracranial hemorrhage, mass effect, hydrocephalus or extra-axial fluid collections. No CT evidence for territorial infarction. Mild generalized parenchymal volume loss. Osseous structures are intact. Mastoids are clear. Mucosal thickening and air-fluid level in the right maxillary sinus. IMPRESSION: 1. No acute intracranial CT findings. 2. Mucosal thickening and air-fluid level in the right maxillary sinus compatible with acute sinusitis, partially visualized. Reviewed: Reviewed by Me, Reviewed/Discussed Diagonstic Imaging: Xray Plain Films/CT/US/NM/MRI: chest Comments Date of Exam:09/22/22 RIBS/UNILATERAL WITH CHEST INDICATION: Left rib injury from a fall. EXAM: Three views of the left ribs are obtained. FINDINGS: Three views of the left ribs show no fracture or dislocation. There are emphysematous changes and interstitial fibrosis along with calcified pleural plaques present. There is no effusion or pneumothorax. IMPRESSION: COPD with pulmonary fibrosis. No displaced rib fracture is seen. Reviewed: Reviewed by Me, Reviewed/Discussed Departure Impression Primary Impression: Fall Qualified Codes: W19.XXXA - Unspecified fall, initial encounter Additional Impression: Contusion of rib on left side Qualified Codes: S20.212A - Contusion of left front wall of thorax, initial encounter Disposition: 01 HOME, SELF-CARE Condition: Stable Departure-Patient Inst. Referrals: SHAMAR ROTHMAN MD (PCP) Primary Care Physician Patient Instructions: Rib Fracture or Bruised Rib ED, Preventing Falls ED Add. Discharge Instructions: 4% topical lidocaine with menthol cream gel or patch use as directed on package, Voltaren/diclofenac cream or gel use as directed on package. Follow-up with your primary care provider if symptoms or not improving over the next 7 to 10 days. All discharge instructions reviewed with patient and/or family. Voiced understanding. GERALDO ROBLES DO Sep 22, 2022 11:06
[2022-09-22 11:12] VITALS: BP 133/59
[2022-09-22 11:22] LABS: BASOPHILS % (AUTO) 0 % (0-10); EOSINOPHILS % (AUTO) 0 % (0-10); HEMATOCRIT 37 % (35-52); HEMOGLOBIN 12.7 g/dL (11.5-16.0); LYMPHOCYTES # (AUTO) 1.8 10^3/uL (1.0-4.0); LYMPHOCYTES % (AUTO) 32 % (12-44); MEAN CORPUSCULAR HEMOGLOBIN 30 pg (25-34); MEAN CORPUSCULAR HGB CONC 34 g/dL (32-36); MEAN CORPUSCULAR VOLUME 90 fL (80-99); MEAN PLATELET VOLUME 11.5 fL (9.0-12.2); MONOCYTES # (AUTO) 0.5 10^3/uL (0.0-1.0); MONOCYTES % (AUTO) 8 % (0-12); NEUTROPHILS # (AUTO) 3.4 10^3/uL (1.8-7.8); NEUTROPHILS % (AUTO) 59 % (42-75); PLATELET COUNT 143 10^3/uL (130-400); WHITE BLOOD COUNT 5.7 10^3/uL (4.3-11.0)
[2022-09-22 11:23] LABS: BILIRUBIN,URINE NEGATIVE (NEGATIVE); CLARITY,URINE CLEAR; COLOR,URINE YELLOW; GLUCOSE, URINE (UA) NEGATIVE (NEGATIVE); KETONES,URINE TRACE (NEGATIVE); LEUKOCYTE ESTERASE ,URINE NEGATIVE (NEGATIVE); NITRITE,URINE NEGATIVE (NEGATIVE); PROTEIN,URINE NEGATIVE (NEGATIVE)
[2022-09-22 11:29] LABS: WBC,URINE 0-2 /HPF
[2022-09-22 11:30] LABS: BACTERIA,URINE NEGATIVE /HPF; SQUAMOUS EPITHELIAL CELL,UR 0-2 /HPF
--- NOTE | 2022-09-22 11:51 | Diagnostic Imaging Report ---
PROCEDURE: CT head without contrast. TECHNIQUE: Multiple contiguous axial images were obtained through the brain without the use of intravenous contrast. Auto Exposure Controls were utilized during the CT exam to meet ALARA standards for radiation dose reduction. INDICATION: Trauma. Syncope. Fall. COMPARISON: None. FINDINGS: No intracranial hemorrhage, mass effect, hydrocephalus or extra-axial fluid collections. No CT evidence for territorial infarction. Mild generalized parenchymal volume loss. Osseous structures are intact. Mastoids are clear. Mucosal thickening and air-fluid level in the right maxillary sinus. IMPRESSION: 1. No acute intracranial CT findings. 2. Mucosal thickening and air-fluid level in the right maxillary sinus compatible with acute sinusitis, partially visualized. Dictated by: Dictated on workstation # [id number]
[2022-09-22 11:53] LABS: SODIUM 142 MMOL/L (135-145)
[2022-09-22 11:54] LABS: ALANINE AMINOTRANSFERASE 12 U/L (0-55); ALBUMIN 3.7 GM/DL (3.2-4.5); ALKALINE PHOSPHATASE 76 U/L (40-136); BILIRUBIN,TOTAL 0.5 MG/DL (0.1-1.0); BUN/CREATININE RATIO 15; CARBON DIOXIDE 27 MMOL/L (21-32); CHLORIDE 102 MMOL/L (98-107); CREATININE SERUM 0.74 MG/DL (0.60-1.30); GFR ESTIMATED 82; GLUCOSE 122 MG/DL (70-105); POTASSIUM 3.3 MMOL/L (3.6-5.0); TOTAL PROTEIN 6.7 GM/DL (6.4-8.2)
--- NOTE | 2022-09-22 14:24 | Diagnostic Imaging Report ---
INDICATION: Left rib injury from a fall. EXAM: Three views of the left ribs are obtained. FINDINGS: Three views of the left ribs show no fracture or dislocation. There are emphysematous changes and interstitial fibrosis along with calcified pleural plaques present. There is no effusion or pneumothorax. IMPRESSION: COPD with pulmonary fibrosis. No displaced rib fracture is seen. Dictated by: Dictated on workstation # [id number]
== END 2022-09-22 12:55 | disposition home or self-care (01) ==
LOC: EDUNIT# 11:02 → ER FS 11:03
DX: S20.222A Contusion of left back wall of thorax, initial encounter (principal); Z28.310 Unvaccinated for COVID-19
CPT/HCPCS: 36415; 70450; 71101; 80053; 81000; 84484; 85025; 93005

== ENCOUNTER 2023-02-18 10:09 | Emergency (ER) | payer MEDICARE, MEDICAID ==
[~2023-02-18] VITALS: Ht 170.2 cm; Wt 62.1 kg
--- NOTE | 2023-02-18 10:38 | Diagnostic Imaging Report ---
EXAMINATION: Chest radiograph, portable AP view. DATE: 02/18/2023 10:31 AM INDICATION: 77-year-old female, chest pain. COMPARISON: None. FINDINGS: Heart size and mediastinal contours are unremarkable. There is no identified pneumothorax. There is no large pleural effusion. There are calcified pleural plaques bilaterally. There is no identified focal airspace consolidation. IMPRESSION: 1. No identified acute cardiopulmonary abnormality. 2. Bilateral calcified pleural plaques which can be seen with prior asbestos exposure. Dictated by: Dictated on workstation # [id number]
[2023-02-18 10:44] LABS: HEMATOCRIT 37 % (35-52); HEMOGLOBIN 12.3 g/dL (11.5-16.0); MEAN CORPUSCULAR HEMOGLOBIN 30 pg (25-34); MEAN CORPUSCULAR VOLUME 90 fL (80-99); WHITE BLOOD COUNT 7.1 10^3/uL (4.3-11.0)
[2023-02-18 10:45] LABS: BASOPHILS # (AUTO) 0.1 10^3/uL (0.0-0.1); BASOPHILS % (AUTO) 1 % (0-10); EOSINOPHILS # (AUTO) 0.2 10^3/uL (0.0-0.3); EOSINOPHILS % (AUTO) 3 % (0-10); LYMPHOCYTES # (AUTO) 2.7 X 10^3 (1.0-4.0); LYMPHOCYTES % (AUTO) 38 % (12-44); MEAN CORPUSCULAR HGB CONC 33 g/dL (32-36); MEAN PLATELET VOLUME 10.5 fL (9.0-12.2); MONOCYTES # (AUTO) 0.7 X 10^3 (0.0-1.0); MONOCYTES % (AUTO) 11 % (0-12); NEUTROPHILS # (AUTO) 3.3 X 10^3 (1.8-7.8); NEUTROPHILS % (AUTO) 47 % (42-75); PLATELET COUNT 132 10^3/uL (130-400)
[2023-02-18 10:56] LABS: FIBRIN DEGRADATION PRODUCTS 0.92 UG/ML (0.00-0.49); INR 0.9 (0.8-1.4); PROTHROMBIN TIME PATIENT 12.8 SEC (12.2-14.7)
[2023-02-18 11:07] LABS: ALANINE AMINOTRANSFERASE 11 U/L (0-55); ALKALINE PHOSPHATASE 74 U/L (40-136); BILIRUBIN,TOTAL 0.5 MG/DL (0.1-1.0); BUN/CREATININE RATIO 13; CALCIUM 9.5 MG/DL (8.5-10.1); CARBON DIOXIDE 25 MMOL/L (21-32); CHLORIDE 106 MMOL/L (98-107); CREATININE SERUM 0.88 MG/DL (0.60-1.30); GFR ESTIMATED 67; GLUCOSE 110 MG/DL (70-105); MAGNESIUM 1.8 MG/DL (1.6-2.4); POTASSIUM 3.7 MMOL/L (3.6-5.0); SODIUM 143 MMOL/L (135-145)
[2023-02-18 11:08] LABS: ALBUMIN 3.9 GM/DL (3.2-4.5); TOTAL PROTEIN 6.4 GM/DL (6.4-8.2)
--- NOTE | 2023-02-18 11:49 | ED Chest Pain ---
General Chief Complaint: Chest Wall Stated Complaint: CP; SOB Nursing Triage Note: Patient reports she has had intermittent right sided chest pain that radiates down her right arm for a while now. She states the pain was worse than it ever has been today. She also reports shortness of breath and fatigue. Patient brought to the ED by EMS, patient given 50 mg aspirin and 50 mg fentanyl en route to the ED. Source: patient, EMS, old records Exam Limitations: no limitations History of Present Illness Date Seen by Provider: Feb 18, 2023 Time Seen by Provider: 10:11 Initial Comments This 77-year-old woman presents to the emergency room via EMS with complaints of right-sided chest pain. She has been having intermittent episodes of right- sided chest pain for about the last month. This morning the pain was more severe and unrelenting. She elected to have family call EMS. EMS administered 324 mg of aspirin and fentanyl 50 mcg. Patient reported resolution of pain with the medication. Patient states her pain usually resolves with rest but did not resolve with rest this morning. She denies any pain with inspiration or cough. She is afebrile. She does report recent shortness of breath and fatigue. She denies any known heart or lung problems. She did have a fall in September with head injury and contusion of the right chest. 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 She is a former smoker who quit in 2006. Allergies and Home Medications Allergies Coded Allergies: diphenhydramine (Verified Allergy, Intermediate, Itching, 09/01/20) calcium (Verified Allergy, Mild, Nausea, 09/01/20) levofloxacin (Verified Allergy, Mild, Itching, 09/01/20) brompheniramine (Verified Allergy, Unknown, 09/01/20) phenylpropanolamine (Verified Allergy, Unknown, 09/01/20) secobarbital (Verified Allergy, Unknown, 09/01/20) Patient Home Medication List Home Medication List Reviewed: Yes Hydrocodone/Acetaminophen (Hydrocodone-Acetamin 5-325 mg) 1 Each Tablet, 1 TAB PO Q4H PRN for PAIN-SEVERE (8-10) Prescribed by: ANIRUDH LEDBETTER on 06/19/21 1152 Ibuprofen (Ibuprofen) 600 Mg Tablet, 600 MG PO Q6H PRN for PAIN-MILD Prescribed by: ANIRUDH LEDBETTER on 06/19/21 1151 Lidocaine (Lidocaine 5% Patch) 1 Each Adh..patch, 1 EACH TP Q12H PRN for Vertebral Fracture Prescribed by: ANIRUDH LEDBETTER on 06/19/21 1151 Methocarbamol (Methocarbamol) 500 Mg Tablet, 1,000 MG PO Q8H PRN for back pain/spasms Prescribed by: ANIRUDH LEDBETTER on 06/19/21 1151 Review of Systems Review of Systems Constitutional: see HPI EENTM: No Symptoms Reported Respiratory: See HPI Cardiovascular: See HPI Gastrointestinal: No Symptoms Reported Genitourinary: No Symptoms Reported Musculoskeletal: see HPI Skin: no symptoms reported Psychiatric/Neurological: See HPI Endocrine: No Symptoms Reported Hematologic/Lymphatic: No Symptoms Reported Past Clvsejv-Ztbsyo-Rfuyxa Hx Patient Social History Tobacco Use?: No Tobacco type used: Cigarettes Smoking Status: Former Smoker Use of E-Cig and/or Vaping dev: No Substance use?: No Alcohol Use?: No Pt feels they are or have been: No Immunizations Up To Date First/Initial COVID19 Vaccinat: Not currently vaccinated Second COVID19 Vaccination Jeremy: Not currently vaccinated Third COVID19 Vaccination Date: Not currently vaccinated Seasonal Allergies Seasonal Allergies: No Past Medical History Surgery/Hospitalization HX: HTN; Hypothyroidism Surgeries: Yes Hysterectomy Respiratory: Yes (COPD and pulm fibrosis on imaging) COPD Cardiac: Yes Hypertension Neurological: No : No Genitourinary: No Gastrointestinal: No Musculoskeletal: No Endocrine: Yes Hypothyroidsim HEENT: No Cancer: No Psychosocial: No Integumentary: No Blood Disorders: No Physical Exam Vital Signs Vital Signs - First Documented 02/18/23 10:10 Temp 35.3 Pulse 66 Resp 20 B/P (MAP) 170/53 (92) Pulse Ox 99 O2 Delivery Room Air Capillary Refill : Less Than 3 Seconds Height, Weight, BMI Height: '" Weight: lbs. oz. 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 Norm as Tested, Other (mildly anxious, resolving with rest) Skin: Normal Color, Warm/Dry Progress/Results/Core Measures Results/Orders Lab Results Laboratory Tests Test 02/18/23 10:20 02/18/23 12:35 Range/Units White Blood Count 7.1 4.3-11.0 10^3/uL Red Blood Count 4.15 3.80-5.11 10^6/uL Hemoglobin 12.3 11.5-16.0 g/dL Hematocrit 37 35-52 % Mean Corpuscular Volume 90 80-99 fL Mean Corpuscular Hemoglobin 30 25-34 pg Mean Corpuscular Hemoglobin Concent 33 32-36 g/dL Red Cell Distribution Width 12.9 10.0-14.5 % Platelet Count 132 130-400 10^3/uL Mean Platelet Volume 10.5 9.0-12.2 fL Immature Granulocyte % (Auto) 0 % Neutrophils (%) (Auto) 47 42-75 % Lymphocytes (%) (Auto) 38 12-44 % Monocytes (%) (Auto) 11 0-12 % Eosinophils (%) (Auto) 3 0-10 % Basophils (%) (Auto) 1 0-10 % Neutrophils # (Auto) 3.3 1.8-7.8 X 10^3 Lymphocytes # (Auto) 2.7 1.0-4.0 X 10^3 Monocytes # (Auto) 0.7 0.0-1.0 X 10^3 Eosinophils # (Auto) 0.2 0.0-0.3 10^3/uL Basophils # (Auto) 0.1 0.0-0.1 10^3/uL Immature Granulocyte # (Auto) 0.0 0.0-0.1 10^3/uL Prothrombin Time 12.8 12.2-14.7 SEC INR Comment 0.9 0.8-1.4 Activated Partial Thromboplast Time 24 24-35 SEC D-Dimer 0.92 H 0.00-0.49 UG/ML Sodium Level 143 135-145 MMOL/L Potassium Level 3.7 3.6-5.0 MMOL/L Chloride Level 106 98-107 MMOL/L Carbon Dioxide Level 25 21-32 MMOL/L Anion Gap 12 5-14 MMOL/L Blood Urea Nitrogen 11 7-18 MG/DL Creatinine 0.88 0.60-1.30 MG/DL Estimat Glomerular Filtration Rate 67 BUN/Creatinine Ratio 13 Glucose Level 110 H 70-105 MG/DL Calcium Level 9.5 8.5-10.1 MG/DL Corrected Calcium 9.6 8.5-10.1 MG/DL Magnesium Level 1.8 1.6-2.4 MG/DL Total Bilirubin 0.5 0.1-1.0 MG/DL Aspartate Amino Transf (AST/SGOT) 15 5-34 U/L Alanine Aminotransferase (ALT/SGPT) 11 0-55 U/L Alkaline Phosphatase 74 40-136 U/L Myoglobin 22.0 <58.0 NG/ML Troponin I < 0.30 < 0.30 <0.30 NG/ML Total Protein 6.4 6.4-8.2 GM/DL Albumin 3.9 3.2-4.5 GM/DL My Orders Orders - HENRI KELLOGG MD Cbc With Automated Diff (02/18/23 10:17) Magnesium (02/18/23 10:17) Chest 1 View Ap/Pa Only (02/18/23 10:17) Ekg Tracing (02/18/23 10:17) Comprehensive Metabolic Panel (02/18/23 10:17) Myoglobin Serum (02/18/23 10:17) Protime With Inr (02/18/23 10:17) Partial Thromboplastin Time (02/18/23 10:17) O2 (02/18/23 10:17) Monitor-Rhythm Ecg Trace Only (02/18/23 10:17) Ed Iv/Invasive Line Start (02/18/23 10:17) Fibrin Degradation Products (02/18/23 10:17) Troponin I Fs (02/18/23 10:17) Ct Angio Chest W (02/18/23 11:41) Iohexol Injection (Omnipaque 350 Mg/Ml 1 (02/18/23 12:00) Received Contrast (Hold Metformin- Contr (02/18/23 12:00) Ns (Ivpb) 100 Ml (Sodium Chloride 0.9% 1 (02/18/23 12:00) Ekg Tracing (02/18/23 12:29) Troponin I Fs (02/18/23 12:35) Medications Given in ED Current Medications Medications Dose Ordered Sig/Denzel Route Start Time Stop Time Status Last Admin Dose Admin Iohexol 100 ml ONCE ONCE IV 02/18/23 12:00 02/18/23 12:01 DC 02/18/23 12:11 100 ML Sodium Chloride 100 ml ONCE ONCE IV 02/18/23 12:00 02/18/23 12:01 DC 02/18/23 12:11 100 ML Vital Signs/I&O 02/18/23 02/18/23 10:10 14:28 Temp 35.3 Pulse 66 84 Resp 20 18 B/P (MAP) 170/53 (92) 150/79 Pulse Ox 99 96 O2 Delivery Room Air Room Air Blood Pressure Mean: 92 Progress Progress Note #1: Time: 13:15 Progress Note Patient remained pain-free after being treated with fentanyl and aspirin. Labs were reviewed including CBC, CMP, troponin, myoglobin, magnesium, and D-dimer were reviewed and interpreted by me. D-dimer was elevated at 0.95. Remainder of labs were clinically unremarkable. Chest x-ray showed findings consistent with chronic disease. CT angiogram was obtained because of elevated D-dimer in the context of fatigue, shortness of air, and chest pain. CT angiogram was reviewed by me. Multiple areas of apparent fibrotic scarring were noted along with emphysematous changes. No PE or aortic dissection was noted. Radiologist 's report was also reviewed as noted below. Repeat EKG was obtained after patient had been pain-free for over an hour. The ST depression noted on the initial EKG had resolved. Repeat troponin after 2 hours was also obtained and it was negative. Dr. Jameson, mercury washer on-call, will be consulted and disposition will be pending his recommendations. Progress Note #2: Time: 14:[address] Jameson was consulted at his earliest availability. We discussed the clinical presentation, lab results, EKGs, and imaging studies. Patient is presently symptom free. Her repeat troponin was negative. ST changes on the EKG were determined to be not on specific and nondiagnostic for ischemia. Follow-up in the clinic was recommended. Patient was given return precautions. It was made clear to her and her family that coronary artery disease as a cause of her chest pain cannot be completely ruled out in the emergency room and further follow-up was necessary. Patient expressed understanding. Initial ECG Impression Date: Feb 18, 2023 Initial ECG Impression Time: 10:14 Initial ECG Rate: 61 Initial ECG Rhythm: Normal Sinus Initial ECG Intervals: Normal Comment Sinus rhythm with no ST elevation. There is some minimal ST depression noted in the inferior lateral leads, most notable in V5, V6, and II. No abnormal intervals or axis deviation. EKG : EKG Time: 12:37 Rate: 55 Rhythm: Normal Sinus Comment Normal sinus rhythm with no ST elevation or depression. ST depression seen on EKG earlier today has resolved. No abnormal intervals or axis deviation. Diagnostic Imaging Diagonstic Imaging: Xray Plain Films/CT/US/NM/MRI: chest Comments NAME: CLAUDIA TUCKER [employer] REC#: [id number] PT STATUS: REG ER : 1945 PHYSICIAN: HENRI KELLOGG MD ADMIT DATE: 02/18/23/ER FS Draft Date of Exam:02/18/23 CHEST 1 VIEW AP/PA ONLY EXAMINATION: Chest radiograph, portable AP view. DATE: 02/18/2023 10:31 AM INDICATION: 77-year-old female, chest pain. COMPARISON: None. FINDINGS: Heart size and mediastinal contours are unremarkable. There is no identified pneumothorax. There is no large pleural effusion. There are calcified pleural plaques bilaterally. There is no identified focal airspace consolidation. IMPRESSION: 1. No identified acute cardiopulmonary abnormality. 2. Bilateral calcified pleural plaques which can be seen with prior asbestos exposure. Dictated on workstation # [id number] Dict: 02/18/23 1034 Trans: 02/18/[address] [place] [address] [id number] Interpreted by: BEBETO REESE MD Diagonstic Imaging: CT Plain Films/CT/US/NM/MRI: chest Comments NAME: CLAUDIA TUCKER [employer] REC#: [id number] PT STATUS: REG ER : 1945 PHYSICIAN: HENRI KELLOGG MD ADMIT DATE: 02/18/23/ER FS Draft Date of Exam:02/18/23 CT ANGIO CHEST W EXAMINATION: CT angiography of the chest. TECHNIQUE: Contrast enhanced thin section helical images were obtained through the chest with intravenous contrast timed for the optimal opacification of the arterial structures per CTA protocol. Post-processing, reconstructions and interpretation of angiographic images of the vessels was performed. 3D MIP reconstructions were performed and reviewed. All CT scans use one or more of the following dose optimizing techniques: automated exposure control, MA and/or KvP adjustment based on a patient size and exam type, or iterative reconstruction. HISTORY: Right chest pain, shortness of breath. COMPARISON: 06/19/2021 FINDINGS: Vascular: There are no filling defects within the pulmonary arteries. There are vascular calcifications of the aorta and coronary vessels without aneurysm. Thyroid: The thyroid is normal. Mediastinum: Heart size is normal without significant pericardial effusion. No suspicious lymphadenopathy. Lungs and airways: There is atelectasis or scarring within the lung bases. Calcifications along the pleura bilaterally in the lung apices. No pleural effusion or pneumothorax. The airways are normal. Upper abdomen: The subphrenic structures are normal. Musculoskeletal: There is a compression deformity of the T5 vertebral body. IMPRESSION: 1. No findings of pulmonary embolus or other acute abnormality in the chest. 2. Scarring calcifications along the pleura which can be seen with prior asbestos exposure. These are unchanged from prior exam. 3. New T5 compression deformity. Dictated on workstation # [id number] Dict: 02/18/23 1224 Trans: 02/18/23 1231 [facility] [id number] Interpreted by: GEORGINA TOBIN DO Departure Impression Primary Impression: Chest pain Qualified Codes: R07.9 - Chest pain, unspecified Additional Impressions: Dyspnea Qualified Codes: R06.00 - Dyspnea, unspecified ST segment depression Compression fracture of T5 vertebra Qualified Codes: S22.050A - Wedge compression fracture of T5-T6 vertebra, initial encounter for closed fracture Disposition: 01 HOME, SELF-CARE Condition: Improved Departure-Patient Inst. Decision time for Depature: 14:22 Referrals: SHAMAR ROTHMAN MD (PCP/Family) Primary Care Physician HORTENCIA JAMESON MD Patient Instructions: Chest Pain, Vertebral Compression Fracture ED Add. Discharge Instructions: Follow-up with your primary care provider and a mercury washer such as Dr. Jameson as soon as possible. Dr. Jameson's contact information is below for your convenience. Your heart work-up in the emergency room did not show any evidence of heart attack. However, pain related to heart disease cannot be completely ruled out in the emergency room. You therefore need to follow-up closely with your doctor and a mercury washer for further evaluation such as stress test or heart cath. Take aspirin 81 mg daily until instructed otherwise. You may take the enteric- coated aspirin (EC) which is less irritating to the stomach. For pain you may try taking Tylenol (acetaminophen) up to 1000 mg every 6 hours as needed. You may add ibuprofen up to 400 mg 3 times a day sparingly as needed for pain not controlled by Tylenol. Take with food or milk to avoid stomach irritation. Drink plenty of clear liquids as well. Return to the emergency room if you have recurrent episodes of chest pain, especially if pains are not promptly alleviated by Tylenol or ibuprofen. Also return to the ER if you have chest pain associated with other significant symptoms such as shortness of breath, sweats, lightheadedness, vomiting, etc. You have a compression fracture in your spine at the T5 level. This may cause pain. If your pain is not well controlled or not well-tolerated, discuss options with your primary care provider. You could possibly be referred for kyphoplasty (bone cementing) to help treat the pain. All discharge instructions reviewed with patient and/or family. Voiced understanding. Copy Copies To 1: SHAMAR ROTHMAN MD Copies To 2: HORTENCIA JAMESON MD, JOSHUA T MD Feb 18, 2023 11:49
[2023-02-18] MEDS ORDERED: HOLD METFORMIN - RECEIVED CONTRAST 20 ML VIAL IV SCH (12:00)
[2023-02-18] MEDS ORDERED: NS 100 ML (IVPB) BAG IV ONE (12:00)
[2023-02-18] MEDS ORDERED: IOHEXOL 350 MG/ML 100 ML (OMNIPAQUE 350) VIAL IV ONE (12:00)
--- NOTE | 2023-02-18 12:31 | Diagnostic Imaging Report ---
EXAMINATION: CT angiography of the chest. TECHNIQUE: Contrast enhanced thin section helical images were obtained through the chest with intravenous contrast timed for the optimal opacification of the arterial structures per CTA protocol. Post-processing, reconstructions and interpretation of angiographic images of the vessels was performed. 3D MIP reconstructions were performed and reviewed. All CT scans use one or more of the following dose optimizing techniques: automated exposure control, MA and/or KvP adjustment based on a patient size and exam type, or iterative reconstruction. HISTORY: Right chest pain, shortness of breath. COMPARISON: 06/19/2021 FINDINGS: Vascular: There are no filling defects within the pulmonary arteries. There are vascular calcifications of the aorta and coronary vessels without aneurysm. Thyroid: The thyroid is normal. Mediastinum: Heart size is normal without significant pericardial effusion. No suspicious lymphadenopathy. Lungs and airways: There is atelectasis or scarring within the lung bases. Calcifications along the pleura bilaterally in the lung apices. No pleural effusion or pneumothorax. The airways are normal. Upper abdomen: The subphrenic structures are normal. Musculoskeletal: There is a compression deformity of the T5 vertebral body. IMPRESSION: 1. No findings of pulmonary embolus or other acute abnormality in the chest. 2. Scarring calcifications along the pleura which can be seen with prior asbestos exposure. These are unchanged from prior exam. 3. New T5 compression deformity. Dictated by: Dictated on workstation # [id number]
[2023-02-18 14:28] VITALS: BP 150/79
== END 2023-02-18 14:31 | disposition home or self-care (01) ==
LOC: EDUNIT# 10:09 → ER FS 10:11
DX: S22.059A Unspecified fracture of T5-T6 vertebra, initial encounter for closed fracture (principal); R07.89 Other chest pain; R06.00 Dyspnea, unspecified; R94.31 Abnormal electrocardiogram [ECG] [EKG]; F17.210 Nicotine dependence, cigarettes, uncomplicated; Z28.310 Unvaccinated for COVID-19; X58.XXXA Exposure to other specified factors, initial encounter
CPT/HCPCS: 36415; 71045; 71275; 80053; 83735; 83874; 84484; 85025; 85379; 85610; 85730; 93005; 93041; Q9967

== ENCOUNTER 2023-02-22 06:12 | Emergency (ER) | payer MEDICARE, MEDICAID ==
[~2023-02-22] VITALS: Ht 170.1 cm; Wt 62.5 kg
--- NOTE | 2023-02-22 06:19 | ED Lower Extremity ---
General Stated Complaint: FALL|RIGHT ANKLE History of Present Illness Date Seen by Provider: Feb 22, 2023 Time Seen by Provider: 06:18 Initial Comments 77-year-old female is here with complaints of right ankle pain and swelling, after she was about to have a fall but caught herself in time, but banged her ankle against her entertainment center. Denies sensory loss. Patient is unable to bear weight on it. Allergies and Home Medications Allergies Coded Allergies: diphenhydramine (Verified Allergy, Intermediate, Itching, 09/01/20) calcium (Verified Allergy, Mild, Nausea, 09/01/20) levofloxacin (Verified Allergy, Mild, Itching, 09/01/20) brompheniramine (Verified Allergy, Unknown, 09/01/20) phenylpropanolamine (Verified Allergy, Unknown, 09/01/20) secobarbital (Verified Allergy, Unknown, 09/01/20) Patient Home Medication List Home Medication List Reviewed: Yes Hydrocodone/Acetaminophen (Hydrocodone-Acetamin 5-325 mg) 1 Each Tablet, 1 TAB PO Q4H PRN for PAIN-SEVERE (8-10) Prescribed by: ANIRUDH LEDBETTER on 06/19/21 1152 Ibuprofen (Ibuprofen) 600 Mg Tablet, 600 MG PO Q6H PRN for PAIN-MILD Prescribed by: ANIRUDH LEDBETTER on 06/19/21 1151 Lidocaine (Lidocaine 5% Patch) 1 Each Adh..patch, 1 EACH TP Q12H PRN for Verteb ral Fracture Prescribed by: ANIRUDH LEDBETTER on 06/19/21 1151 Methocarbamol (Methocarbamol) 500 Mg Tablet, 1,000 MG PO Q8H PRN for back pain/spasms Prescribed by: ANIRUDH LEDBETTER on 06/19/21 1151 Review of Systems Constitutional: no symptoms reported EENTM: no symptoms reported Respiratory: no symptoms reported Cardiovascular: no symptoms reported Gastrointestinal: no symptoms reported Genitourinary: no symptoms reported Musculoskeletal: joint pain, joint swelling Skin: no symptoms reported Psychiatric/Neurological: No Symptoms Reported Past Ritufiw-Nfhlxz-Bidjrq Hx Immunizations Up To Date First/Initial COVID19 Vaccinat: Not currently vaccinated Second COVID19 Vaccination Jeremy: Not currently vaccinated Third COVID19 Vaccination Date: Not currently vaccinated Seasonal Allergies Seasonal Allergies: No Past Medical History Surgery/Hospitalization HX: HTN; Hypothyroidism Surgeries: Yes Hysterectomy Respiratory: Yes (COPD and pulm fibrosis on imaging) COPD Cardiac: Yes Hypertension Neurological: No Genitourinary: No Gastrointestinal: No Musculoskeletal: No Endocrine: Yes Hypothyroidsim HEENT: No Cancer: No Psychosocial: No Integumentary: No Blood Disorders: No Physical Exam Vital Signs Capillary Refill : Height, Weight, BMI Height: '" Weight: lbs. oz. kg; 21.00 BMI Method: General Appearance: WD/WN, no apparent distress HEENT: PERRL/EOMI Neck: full range of motion Knees: right knee non-tender, right knee normal inspection, right knee normal range of motion, right knee no evidence of injury Ankles: right ankle limited range of motion (Due to pain), right ankle pain, right ankle soft tissue tenderness, right ankle swelling Feet: right foot non-tender, right foot normal inspection Neurologic/Tendon: normal sensation, normal motor functions Neurologic/Psychiatric: alert, normal mood/affect, oriented x 3 Progress/Results/Core Measures Results/Orders My Orders Orders - CROW GRANDE MD Ankle 3 View Right (02/22/23 06:24) Progress Progress Note : Progress Note 1. RIGHT ANKLE SPRAIN - XR RIGHT ANKLE: no fracture - Ankle boot, pt does not have the coordination to use crutches -Advised walker for support -Advised ice application -Advised Tylenol or ibuprofen for pain -Follow-up with Ortho in 7 to 10 days -The patient was seen in the ED, and treated appropriately to presentation at a specific point in time. Patient is informed that there is a possibility that disease and illness can evolve and change in acuity rapidly or slowly after patient is discharged from the ER. Precautionary advice given to the patient for immediate return to ER if symptoms worsen or do not resolve, and to seek emergency care sooner rather than later. Pt also advised on the importance of PCP follow up and compliance with management and follow up plan with PCP and/or specialist, as this is part of the management plan. Pt verbally expressed understanding. Diagnostic Imaging Diagonstic Imaging: Xray Plain Films/CT/US/NM/MRI: ankle Comments [facility]. [place], [place] NAME: CLAUDIA TUCKER MED REC#: [id number] PT STATUS: REG ER : 1945 PHYSICIAN: CROW GRANDE MD ADMIT DATE: 02/22/23/ER FS Draft Date of Exam:02/22/23 ANKLE 3 VIEW RIGHT INDICATION: Right ankle injury with pain and swelling. COMPARISON: None. DISCUSSION: Three views of the right ankle were obtained. Lateral soft tissue swelling noted. No fracture or dislocation. Ankle mortise is symmetric. Alignment is anatomic. IMPRESSION: 1. Right ankle soft tissue swelling. No fracture. Dictated on workstation # [id number] Dict: 02/22/23 0637 Trans: 02/22/23 0642 [facility] [id number] Interpreted by: TRUONG CABALLERO MD Electronically signed by: Departure Impression Primary Impression: Right ankle sprain Qualified Codes: S93.401A - Sprain of unspecified ligament of right ankle, initial encounter Disposition: HOME, SELF-CARE Condition: Stable Departure-Patient Inst. Referrals: SHAMAR ROTHMAN MD (PCP/Family) Primary Care Physician JOSE CORNELL MD Patient Instructions: Ankle Sprain ED, Walking Boot, Using Cold for Pain Add. Discharge Instructions: -Advised walker for support -Advised ice application -Advised Tylenol or ibuprofen for pain -Follow-up with Ortho in 7 to 10 days CROW GRANDE MD Feb 22, 2023 06:18
--- NOTE | 2023-02-22 06:43 | Diagnostic Imaging Report ---
INDICATION: Right ankle injury with pain and swelling. COMPARISON: None. DISCUSSION: Three views of the right ankle were obtained. Lateral soft tissue swelling noted. No fracture or dislocation. Ankle mortise is symmetric. Alignment is anatomic. IMPRESSION: 1. Right ankle soft tissue swelling. No fracture. Dictated by: Dictated on workstation # [id number]
[2023-02-22 07:07] VITALS: BP 136/53
== END 2023-02-22 07:07 | disposition home or self-care (01) ==
LOC: EDUNIT# 06:12 → ER FS 06:14
DX: S93.401A Sprain of unspecified ligament of right ankle, initial encounter (principal); Z28.310 Unvaccinated for COVID-19; W19.XXXA Unspecified fall, initial encounter
CPT/HCPCS: 73610

== ENCOUNTER → 2023-02-24 | Outpatient (CLI) | payer MEDICARE, MEDICAID ==
--- NOTE | 2023-02-24 12:19 | Diagnostic Imaging Report ---
INDICATION: Repeated falls with right foot pain. FINDINGS: Bone density is diminished suggestive of osteopenia. There is an old healed deformity to the distal neck of the fifth metatarsal. Tiny ossification proximal to the base of the fifth is either an old avulsion or tiny ossicle. The latter felt more likely. There is no regional swelling to suggest its acute nature. No acute fracture identified. No abnormal periosteal reaction. IMPRESSION: 1. Old healed fifth distal neck metatarsal deformity. Underlying bony demineralization suspected. Likely tiny ossicle or soft tissue calcification versus remote avulsion at the base of fifth metatarsal. 2. No acute appearing abnormality identified. Dictated by: Dictated on workstation # [id number]
== END ==
LOC: RAD FS 11:41
PROVIDERS: ATTEND Family Medicine
DX: M79.671 Pain in right foot (principal); R29.6 Repeated falls; I10 Essential (primary) hypertension
CPT/HCPCS: 73630